=== PATIENT | female | born 1970 | race Two or more races ===

== ENCOUNTER 2025-08-26 18:07 | Inpatient (IN) | payer OTHER ==
[~2025-08-26] VITALS: Ht 157.5 cm; Wt 63.5 kg
[2025-08-26] MEDS ORDERED: METHYLPREDNISOLONE SOD SUCC 125 MG VIAL IM STA (18:45)
[2025-08-26] MEDS ORDERED: PROPOFOL 10,000 MCG/ML VIAL IV SCH (18:45)
--- NOTE | 2025-08-26 18:54 | NUR ---
PACIENTE FEMENINA LLEGA A MANUEL DE EMERGENCIA INCONSCIENTE, DIFICULTAD AL RESPIRAR Y CIANOTICA, TRANSPORTADA POR DOCTOR SERRANO EN [place] SE [place] EN EL AREA DE CHEST PAIN EN LA CAMA #[id number].
[2025-08-26 18:56] LABS: BASO % 0.7 % (0.1-1.2); EOS # 1.19 (0.04-0.54); EOS % 7.4 % (0.7-7.0); LYMPH # 8.84 (1.18-3.74); LYMPH % 54.7 % (19.3-53.1); MEAN PLATELET VOLUME 10.40 fl (9.4-12.4); MONO # 1.46 (0.24-0.82); MONO % 9.0 % (4.7-12.5); NEUT # 4.52 (1.56-6.13); NEUT % 28.0 % (34.0-71.1); RED CELL DISTRIBUTION WIDTH 12.3 % (11.6-14.4)
[2025-08-26] MEDS ORDERED: PROPOFOL 10,000 MCG/ML VIAL IV PUSH STA (19:07)
[2025-08-26] MEDS ORDERED: EPINEPHRINE HCL/PF 1 MG/ML AMPUL IV PUSH STA (19:07)
[2025-08-26 19:28] LABS: ALT/SGPT 32.0 U/L (12-78); AST/SGOT 33.0 U/L (15-37); BILIRUBIN TOTAL 0.54 mg/dL (0.3-1.2); BUN CREA RATIO 14.0 (7.0-25.0); CREATININE SERUM 1.15 mg/dL (0.55-1.02); GFR 48.81; GLOBULINA 4.2 G/DL (2.4-3.5); GLUCOSE FASTING 172.0 mg/dL (65-100); OSMOLALITY SERUM 288.0 MOSM/KG (275-295)
[2025-08-26 19:42] LABS: BASOPHIL MAN 2.0 %; EOSINOPHIL MAN 5.0 %; LYMPHOCYTE MAN 34.0 %; MONOCYTE MAN 5.0 %; NEUTROPHILS MAN 36.0 %
[2025-08-26 20:00] LABS: URINE APPEARANCE Clear; URINE BILIRRUBIN Negative (NEGATIVE); URINE BLOOD Negative; URINE COLOR Yellow; URINE GLUCOSE Negative (NEGATIVE); URINE KETONE Negative (NEGATIVE); URINE LEUKOCYTE Negative; URINE NITRATE Negative; URINE PROTEIN Negative (NEGATIVE); URINE UROBILINOGEN 0.2 E.U./dl
[2025-08-26 20:04] LABS: URINE BACTERIA 22.8 uL (0.0-1933); URINE EPITHELIAL CELLS 9.5 uL (0.0-38.8); URINE RBC 7.2 uL (0.0-20.8); URINE WBC 6.5 uL (0.0-23.2)
[2025-08-26] MEDS ORDERED: CEFTRIAXONE SODIUM 2,000 MG in 0.9 % SODIUM CHLORIDE 100 ML IV SCH (21:06)
[2025-08-26 21:17] LABS: URINE CAST 0.70 uL (0.0-1.40)
--- NOTE | 2025-08-26 21:51 | NUR ---
PRITESH ([facility]) [phone] DA ([facility]) [phone]
[2025-08-26 23:33] VITALS: BP 145/83; O2SAT 97
[2025-08-26] MEDS ORDERED: CEFTRIAXONE SODIUM 2,000 MG VIAL ONE (23:50)
[2025-08-27] VITALS (19 sets, daily range): BP systolic 91–163; BP diastolic 51–97; O2SAT 99–100
[2025-08-27] MEDS ORDERED: PROPOFOL 10,000 MCG/ML VIAL ONE (01:35)
[2025-08-27 07:22] LABS: BASO % 0.1 % (0.1-1.2); EOS # 0.00 (0.04-0.54); EOS % 0.0 % (0.7-7.0); LYMPH # 1.11 (1.18-3.74); LYMPH % 12.1 % (19.3-53.1); MEAN PLATELET VOLUME 10.20 fl (9.4-12.4); MONO # 0.22 (0.24-0.82); MONO % 2.4 % (4.7-12.5); NEUT # 7.81 (1.56-6.13); NEUT % 85.2 % (34.0-71.1); RED CELL DISTRIBUTION WIDTH 12.1 % (11.6-14.4)
[2025-08-27] MEDS ORDERED: PROPOFOL 100 ML IV SCH (08:30)
[2025-08-27] MEDS ORDERED: METHYLPREDNISOLONE SOD SUCC 125 MG VIAL IM SCH ×2 (09:00→17:00)
[2025-08-27 10:35] LABS: INR 0.99
[2025-08-27 10:36] LABS: BUN CREA RATIO 19.0 (7.0-25.0); CREATININE SERUM 0.62 mg/dL (0.55-1.02); GFR 99.57; GLUCOSE FASTING 141.0 mg/dL (65-100); OSMOLALITY SERUM 291.0 MOSM/KG (275-295)
[2025-08-27] MEDS ORDERED: BUDESONIDE 0.5 MG/2 ML AMPUL.NEB IH SCH (12:15)
[2025-08-27] MEDS ORDERED: IPRATROPIUM/ALBUTEROL SULFATE 3 ML AMPUL.NEB IH SCH (14:00)
[2025-08-27] MEDS ORDERED: IPRATROPIUM/ALBUTEROL SULFATE 3 ML AMPUL.NEB IH ONE ×2 (14:23→17:08)
[2025-08-27] MEDS ORDERED: METHYLPREDNISOLONE SOD SUCC 125 MG VIAL ONE (15:48)
[2025-08-27] MEDS ORDERED: BUDESONIDE 0.5 MG/2 ML AMPUL.NEB IH ONE (17:08)
[2025-08-27] MEDS ORDERED: CEFTRIAXONE SODIUM 2,000 MG VIAL ONE (22:49)
[2025-08-28] VITALS (22 sets, daily range): BP systolic 95–154; BP diastolic 46–91; O2SAT 98–100
[2025-08-28] MEDS ORDERED: WATER FOR INJ.,BACTERIOSTATIC 30 ML VIAL IJ ONE
[2025-08-28] MEDS ORDERED: IPRATROPIUM/ALBUTEROL SULFATE 3 ML AMPUL.NEB IH ONE ×2 (03:19→07:58)
[2025-08-28] MEDS ORDERED: BUDESONIDE 0.5 MG/2 ML AMPUL.NEB IH ONE (07:57)
[2025-08-28] MEDS ORDERED: CEFTRIAXONE SODIUM 2,000 MG VIAL ONE (08:01)
[2025-08-28] MEDS ORDERED: METHYLPREDNISOLONE SOD SUCC 125 MG VIAL ONE ×2 (08:02)
[2025-08-28] MEDS ORDERED: CHLORHEXIDINE GLUCONATE 15ML BRUSH KIT MM SCH (10:29)
[2025-08-28] MEDS ORDERED: ENOXAPARIN SODIUM 40 MG/0.4 ML SYRINGE SUBCUTANEO SCH (10:29)
[2025-08-28] MEDS ORDERED: POLYVINYL ALCOHOL 15 ML DROPS OP SCH (10:29)
[2025-08-28] MEDS ORDERED: AZITHROMYCIN 500 MG VIAL IV SCH (10:33)
[2025-08-28] MEDS ORDERED: CARVEDILOL 3.125 MG TABLET PO SCH (12:58)
[2025-08-29] VITALS (16 sets, daily range): BP systolic 116–159; BP diastolic 64–91; O2SAT 97–100
[2025-08-29] MEDS ORDERED: DILTIAZEM HCL 125 MG in 0.9 % SODIUM CHLORIDE 100 ML IV SCH (02:15)
[2025-08-30] VITALS (8 sets, daily range): BP systolic 117–162; BP diastolic 65–93; O2SAT 97–100
[2025-08-30] MEDS ORDERED: METHYLPREDNISOLONE SOD SUCC 125 MG VIAL IM SCH (01:00)
[2025-08-30] MEDS ORDERED: FAMOTIDINE/PF 20 MG in 0.9 % SODIUM CHLORIDE 8 ML IV PUSH SCH (09:00)
[2025-08-30] MEDS ORDERED: DILTIAZEM HCL 30 MG TABLET PO SCH (09:00)
[2025-08-30] MEDS ORDERED: RACEPINEPHRINE HCL 0.5 ML AMPUL IH STA (11:34)
[2025-08-30] MEDS ORDERED: ONDANSETRON HCL 2 MG/ML VIAL IV STA (13:06)
[2025-08-30] MEDS ORDERED: ONDANSETRON HCL 2 MG/ML VIAL IV PRN (13:15)
[2025-08-30] MEDS ORDERED: METHYLPREDNISOLONE SOD SUCC 40 MG VIAL IM SCH (17:00)
[2025-08-30] MEDS ORDERED: IPRATROPIUM BROMIDE 0.5 MG/2.5 ML AMPUL.NEB IH SCH (18:30)
[2025-08-30] MEDS ORDERED: PHENOL 177 ML BOTTLE MM SCH (21:00)
[2025-08-31] VITALS (7 sets, daily range): BP systolic 124–163; BP diastolic 64–94; O2SAT 92–100
[2025-08-31] MEDS ORDERED: LEVALBUTEROL HCL 0.63 MG/3 ML SOLUTION IH SCH
[2025-08-31] MEDS ORDERED: METHYLPREDNISOLONE SOD SUCC 40 MG VIAL IM SCH (01:00)
[2025-08-31] MEDS ORDERED: PANTOPRAZOLE SODIUM 40 MG/VIAL VIAL IV PUSH STA (14:50)
[2025-08-31] MEDS ORDERED: METHYLPREDNISOLONE SOD SUCC 40 MG VIAL IV SCH (17:00)
[2025-08-31] MEDS ORDERED: PANTOPRAZOLE SODIUM 40 MG/VIAL VIAL IV PUSH SCH (21:00)
[2025-09-01] VITALS (9 sets, daily range): BP systolic 142–174; BP diastolic 76–88; O2SAT 96–100
[2025-09-01] MEDS ORDERED: LOSARTAN POTASSIUM 25 MG TABLET PO SCH (10:53)
[2025-09-01] MEDS ORDERED: METHYLPREDNISOLONE SOD SUCC 40 MG VIAL IV SCH (21:00)
[2025-09-02] VITALS: BP 152/71; O2SAT 99
[2025-09-02 00:34] VITALS: O2SAT 99
[2025-09-02 06:23] VITALS: O2SAT 97
[2025-09-02 08:59] VITALS: O2SAT 99
[2025-09-02 09:59] VITALS: BP 138/76; O2SAT 99
== END 2025-09-02 13:36 | disposition home or self-care (01) | DRG 207 ==
LOC: ER 18:07 → ICU-2 22:07 → ICU 08-29 02:12 → MEDI 08-31 19:37
PROVIDERS: General Practice; ADMIT Internal Medicine; ATTEND Internal Medicine
PROC: 0BH18EZ Insertion of Endotracheal Airway into Trachea, Via Natural or Artificial Opening Endoscopic (ICD-10-PCS; principal; 2025-08-26)
PROC: BB24ZZZ Computerized Tomography (CT Scan) of Bilateral Lungs (ICD-10-PCS; 2025-08-26)
PROC: BR20ZZZ Computerized Tomography (CT Scan) of Cervical Spine (ICD-10-PCS; 2025-08-26)
PROC: BW28ZZZ Computerized Tomography (CT Scan) of Head (ICD-10-PCS; 2025-08-26)
PROC: 5A1955Z Respiratory Ventilation, Greater than 96 Consecutive Hours (ICD-10-PCS; 2025-08-26)
PROC: 3E0F7GC Introduction of Other Therapeutic Substance into Respiratory Tract, Via Natural or Artificial Opening (ICD-10-PCS; 2025-08-30)
PROC: 4A12X4Z Monitoring of Cardiac Electrical Activity, External Approach (ICD-10-PCS; 2025-08-31)
DX: J96.90 Respiratory failure, unspecified, unspecified whether with hypoxia or hypercapnia (principal); J45.51 Severe persistent asthma with (acute) exacerbation; J20.9 Acute bronchitis, unspecified